=== PATIENT | female | born 2000 | race Hispanic/Latino ===

== ENCOUNTER 2018-08-07 15:21 | Emergency (ER) | payer SELFPAY ==
[2018-08-07] MEDS ORDERED: Sodium Chloride 0.9% 1,000 ML ONE (15:57)
[2018-08-07] MEDS ORDERED: Lidocaine 1% (PF) 30 ML VIAL ONE (15:57)
[2018-08-07] MEDS ORDERED: Morphine 4 MG/ML VIAL ONE (15:58)
[2018-08-07] MEDS ORDERED: Ondansetron PF 4 MG/2 ML Vial ONE (15:59)
[2018-08-07] MEDS ORDERED: Clindamycin 300 MG/2 ML VIAL ONE (16:00)
[2018-08-07] MEDS ORDERED: Sodium Chloride 0.9% 0 ML ONE (16:02)
[2018-08-07] MEDS ORDERED: Acetaminophen 500 MG TAB ONE (17:00)
== END 2018-08-07 17:00 | disposition home or self-care (01) ==
LOC: NAV ERS 15:21
DX: L02.416 Cutaneous abscess of left lower limb (principal); R73.9 Hyperglycemia, unspecified; R73.03 Prediabetes; E03.9 Hypothyroidism, unspecified
CPT/HCPCS: 10060; 36416; 87070; 87077; 87205; 96365; 96375; J2001; J2270; J2405; J3490; J7050

== ENCOUNTER 2018-08-09 10:59 | Emergency (ER) | payer SELFPAY | END 2018-08-09 11:53 | disposition home or self-care (01) | LOC: NAV ERS 10:59 | DX: Z48.817 Encounter for surgical aftercare following surgery on the skin and subcutaneous tissue (principal); R73.03 Prediabetes; E03.9 Hypothyroidism, unspecified; Z79.891 Long term (current) use of opiate analgesic; Z79.899 Other long term (current) drug therapy | CPT/HCPCS: 99282 ==

== ENCOUNTER 2023-10-04 23:00 | Emergency (ER) | payer MEDICAID, SELFPAY ==
[2023-10-04] MEDS ORDERED: Ibuprofen 200 MG TAB ONE (23:27)
[2023-10-04] MEDS ORDERED: Penicillin V Potassium 250 MG TAB ONE (23:56)
[2023-10-05 00:09] LABS: Influenza A by NAA Not Detected (NotDetected); Influenza B by NAA Not Detected (NotDetected); SARS-CoV-2 NAA Rapid Test Not Detected (NotDetected)
== END 2023-10-05 00:26 | disposition home or self-care (01) ==
LOC: NAV ERS 23:00
DX: J02.0 Streptococcal pharyngitis (principal); E66.9 Obesity, unspecified
CPT/HCPCS: 87430; 99283

== ENCOUNTER 2023-10-09 19:49 | Emergency (ER) | payer MEDICAID, SELFPAY ==
[2023-10-09 21:02] LABS: INR-International Normal Ratio 0.9; Prothrombin Time 12.1 sec (12.0-14.7)
[2023-10-09 21:03] LABS: PTT 29.1 sec (22.9-36.1)
[2023-10-09 21:03] LABS: Bilirubin Negative (Negative); Blood, Urine Moderate (Negative); Clarity Clear (Clear); Glucose, Urine (Dipstick) >=1000 mg/dL (Negative); Ketone, Urine Trace mg/dL (Negative); Leukocyte Trace (Negative); Nitrite Negative (Negative); Protein, Urine (Dipstick) 100 mg/dL (Neg-Trace); Urobilinogen 0.2 mg/dL (Less than 2); pH, Urine 5.5 (5.0-9.0)
[2023-10-09 21:06] LABS: #Basophils 0.1 thou/uL (0.0-0.2); #Eosinphils 0.3 thou/uL (0.0-0.7); #Lymphocytes 1.6 thou/uL (1.20-3.40); #Monocytes 0.5 thou/uL (0.11-0.59); #Neutrophils 2.7 thou/uL (1.40-6.50); %Eosinophils 5.6 % (0.0-10.0); %Lymphocytes 30.7 % (21.0-51.0); %Monocytes 9.7 % (0.0-10.0); %Neutrophils 52.1 % (42.0-75.0); Hematocrit 32.9 % (36.0-47.0); Hemoglobin 9.6 g/dL (12.0-16.0); Mean Corpuscular HGB CONC 29.3 g/dL (32.0-36.0); Mean Corpuscular Hemoglobin 19.6 pg (27.0-31.0); Mean Corpuscular Volume 66.8 fl (78.0-98.0); Mean Platelet Volume 7.7 fL (7.4-10.4); Platelet Adequacy Comment Appears Adequate; Platelet Count 307 10x3/uL (130-400); Red Blood Cell (RBC) Count 4.93 mill/uL (4.20-5.40); White Blood Cell (WBC) Count 5.1 10x3/uL (4.8-10.8)
[2023-10-09 21:07] LABS: ALT (SGPT) 31 U/L (8-55); AST (SGOT) 20 U/L (5-34); Albumin 4.1 g/dL (3.5-5.0); Alkaline Phosphatase 86 U/L (40-110); Anion Gap 16 mmol/L (10-20); BUN (Urea Nitrogen) 17 mg/dL (7.0-18.7); Bilirubin, Total 0.3 mg/dL (0.2-1.2); Calc. Creatinine Clearance 0 mL/min (70-130); Calcium 9.2 mg/dL (7.8-10.44); Carbon Dioxide 20 mmol/L (22-29); Chloride 100 mmol/L (98-107); Estimated GFR 63; Globulin 4.6 g/dL (2.4-3.5); Potassium 3.9 mmol/L (3.5-5.1); Protein, Total 8.7 g/dL (6.0-8.3); Sodium 132 mmol/L (136-145)
[2023-10-09 21:10] LABS: Bacteria/HPF 1+ HPF (None Seen); CAUTI Indications for Culture Acute Hematuria; Squamous Epithelial 0-3 HPF (0-3)
[2023-10-09 21:11] LABS: Urine Culture Reflex No No
[2023-10-09] MEDS ORDERED: Sodium Chloride 0.9% 1,000 ML ONE (21:12)
[2023-10-09] MEDS ORDERED: Cyclobenzaprine 10 MG TAB ONE (21:12)
[2023-10-09 21:16] LABS: Critical Call Chemistry NUR.AHW@2114; Glucose 536 mg/dL (70-105)
[2023-10-09] MEDS ORDERED: Ketorolac Tromethamine 30 MG (1 mL) VIAL ONE (21:35)
[2023-10-09] MEDS ORDERED: Insulin Regular, Human 100 UNIT/ML 10 ML VIAL ONE (21:36)
[2023-10-09 21:39] LABS: Base Excess-Venous -3.1 mmol/L (-2.0 to 3.0); Bicarbonate (HCO3v) 22.2 mmol/L (22.0-28.0); CO2 Tension (PvCO2) 39.7 mmHg (42.0-51.0); Calcium, Ionized 1.22 mmol/L (1.15-1.33); Chloride 103 mmol/L (98-107); Potassium 3.8 mmol/L (3.5-5.1); Sodium 133 mmol/L (138-145); T. Carbon Dioxide 23.4 mmol/L (22.0-28.0); vO2 Saturation-calc 66.7 % (60.0-85.0)
[2023-10-09] MEDS ORDERED: Cephalexin 250 MG CAP ONE (22:00)
== END 2023-10-09 22:05 | disposition home or self-care (01) ==
LOC: NAV ERS 19:49
DX: S33.5XXA Sprain of ligaments of lumbar spine, initial encounter (principal); E11.65 Type 2 diabetes mellitus with hyperglycemia; N39.0 Urinary tract infection, site not specified; X50.9XXA Other and unspecified overexertion or strenuous movements or postures, initial encounter
CPT/HCPCS: 36416; 80053; 81001; 82010; 82330; 82803; 85025; 85610; 85730; 86140; 96361; 96374; J1815; J1885; J7050

== ENCOUNTER 2025-02-03 18:56 | Emergency (ER) | payer SELFPAY ==
[2025-02-03 19:28] LABS: #Basophils 0.1 thou/uL (0.0-0.2); #Eosinophils 0.2 thou/uL (0.0-0.7); #Lymphocytes 2.3 thou/uL (1.20-3.40); #Monocytes 0.6 thou/uL (0.11-0.59); #Neutrophils 3.4 thou/uL (1.40-6.50); %Basophils 1.4 % (0.0-1.0); %Eosinophils 3.4 % (0.0-10.0); %Lymphocytes 35.1 % (21.0-51.0); %Monocytes 9.3 % (0.0-10.0); %Neutrophils 50.8 % (42.0-75.0); Hematocrit 39.4 % (36.0-47.0); Hemoglobin 13.4 g/dL (12.0-16.0); Mean Corpuscular Hemoglobin 25.3 pg (27.0-31.0); Mean Corpuscular Volume 74.3 fl (78.0-98.0); Platelet Count 274 10x3/uL (130-400); Red Blood Cell (RBC) Count 5.30 mill/uL (4.20-5.40); White Blood Cell (WBC) Count 6.6 10x3/uL (4.8-10.8)
[2025-02-03 19:48] LABS: ALT (SGPT) 144 U/L (Less than 34); AST (SGOT) 115 U/L (11-34); Albumin 3.4 g/dL (3.1-4.5); Alkaline Phosphatase 67 U/L (40-110); Anion Gap 18 mmol/L (10-20); BUN (Urea Nitrogen) 16 mg/dL (7.0-18.7); Bilirubin, Total 0.2 mg/dL (0.3-1.2); Calc. Creatinine Clearance 0 mL/min (70-130); Calcium 9.5 mg/dL (7.8-10.44); Carbon Dioxide 21 mmol/L (22-29); Chloride 95 mmol/L (98-107); Globulin 3.9 g/dL (2.4-3.5); Potassium 4.1 mmol/L (3.5-5.1); Sodium 130 mmol/L (136-145)
[2025-02-03 19:54] LABS: Critical Call Chemistry LOYJO@1950; Glucose 485 mg/dL (70-105)
[2025-02-03 19:58] LABS: Glucose, Urine (Dipstick) >=1000 mg/dL (Negative); Leukocyte Small (Negative); Protein, Urine (Dipstick) 30 mg/dL (Neg-Trace); Specific Gravity, Urine Less/Equal 1.005 (1.005-1.030)
[2025-02-03 20:07] LABS: Bacteria/HPF 1+ HPF (None Seen); CAUTI Indications for Culture Pelvic or flank pain; Yeast-Budding 1+ HPF (None Seen)
[2025-02-03 20:08] LABS: Urine Culture Reflex No No
== END 2025-02-03 21:02 | disposition short-term general hospital (02) ==
LOC: NAV ERS 18:56
DX: O20.9 Hemorrhage in early pregnancy, unspecified (principal); O24.911 Unspecified diabetes mellitus in pregnancy, first trimester; Z3A.09 9 weeks gestation of pregnancy; Z79.4 Long term (current) use of insulin
CPT/HCPCS: 80053; 81001; 84702; 85025; 99284; J1815